=== PATIENT | male | born 1970 | race Caucasian/White ===

== ENCOUNTER 2025-06-13 14:06 | Emergency (ER) | payer BC ==
[~2025-06-13] VITALS: Ht 175.3 cm; Wt 82.5 kg
[2025-06-13 14:28] VITALS: BP 134/74; PULSE 81; RESP 18; TEMP 97.9; O2SAT 99
--- NOTE | 2025-06-13 15:17 | Physician Documentation ---
History of Present Illness ~ Chief Complaint: Finger pain Stated Complaint: FINGER PAIN Time Seen by MD: 15:10 Primary Medical Doctor: none HPI 54-year-old male presents to the ED with a complaint of a dislocated left 5th finger. He provided an photo of the x-ray of his finger that he received from his doctor today. States that it happened while sparring with some 25-year-old man doing martial arts. Finger now appears displaced Tetanus within 5 years: No Medication Reconciliation Allergies: Coded Allergies: Penicillins (Verified Allergy, Severe, RASH, 06/13/25) Uncoded Allergies: ZPAK (Allergy, Severe, HIVES, 06/13/25) Review of Systems All Other Systems at this time: Reviewed and Negative ROS As stated above in the HPI, otherwise all systems are reviewed and negative. Physical Exam Vital Signs: Temperature: 97.9, Source: Oral, Heart Rate: 81, Respiratory Rate: 18, BP: 134/74, Pulse Oximetry: 99, Weight: 82.500 Oxygen Flow Rate: 0 Physical Exam General: Alert, no apparent distress. Extremities: Normal range of motion, no deformity. notable deformity in left 5th metacarpal Neurologic: Oriented x4. Psychiatric: Normal mood and affect. Skin: Normal color, warm and dry. No edema, no ecchymosis. Procedures Ultrasound Procedure Note Denied manual traction to the affected finger and was able to realign bones without difficulty. Reported improved symptoms denies any numbness or tingling Progress Results/Orders Results/Orders Vital Signs 06/13/25 06/13/25 14:28 15:19 Temp 97.9 Pulse 81 Resp 18 B/P (MAP) 134/74 Pulse Ox 99 O2 Flow Rate 0 Medical Decision Making Additional information obtaine: old records Findings Successfully reduce the patient's dislocation without difficulty. Patient left before I could obtain a follow up x-ray. However visually he had full function of his finger and reported improved symptoms General Diff Dx:Considerations: Unlikely: Abrasion, Contusion, Fracture, Hematoma, Laceration, Malunion, Neurovascular injury, Open fracture, Sprain, Ulcer, Other Shoulder Diff Dx:Consideration: Unlikely: AC separation, Adhesive capsulitis, Arthritis, Bicipital tendonitis, Calcific tendonitis, Cervical disc disease, Contusion, Dislocation, Fracture-humerus, Fracture-scapula, Fracture-clavicle, GB disease, Hematoma, Impingement syndrome, Myocardial infarction, Neurovascular injury, Open fracture-humerus, Open fracture-scapula, Open fracture-clavicle, Rotator cuff injury, SC dislocatoin, Sprain, Subacromial bursitis, Other Elbow Diff Dx:Considerations: Unlikely: Abrasion, Arthritis, Contustion, DJD, Fracture-humerus, Fracture-radial head, Fracture-radius, Fracture-ulna, Gout, Hematoma, Laceration, Neurovascular injury, Olecranon bursitis, Open fracture, Osteomyelitis, Radial head subluxation, Rheumatoid arthritis, Septic, Sprain, Ulcer, Other Wrist Diff Dx:Considerations: Unlikely: Abrasion, Arthritis, DJD, Gout, Rheumatoid, Septic, Carpal tunnel snydrome, Contusion, Dislocation, Fracture- carpal, Fracture-radius, Fracture-ulna, Ganglion, Laceration, Neurovascular injury, Open fracture, Strain, Other Hand Diff Dx:Considerations: Unlikely: Abrasion, Arthritis, Contusion, DJD, Felon, Fracture-carpal, Fracture-metacarpal, Fracture-phalynx, Fracture-radius, Fracture-ulna, Gout, Hematoma, Herpetic cinthia, Laceration, Neurovascular injury, Open fracture, Paronychia, Rheumatoid arthritis, Septic, Sprain, Subungual hematoma, Tenosynovitis, Volar plate injury, Cellulitis, Malunion, Other Finger Diff Dx:Considerations: Include: Abrasion, Cellulitis, Contusion, Dislocation, Fracture, Hematoma, Laceration, Neurovascular injury, Open fracture, Subungual hematoma, Other Departure Disposition: 01 HOME / SELF CARE / HOMELESS Impression: Primary Impression: Dislocation, finger closed Condition: Improved Referrals: NO PRIMARY CARE PROVIDER (PCP) Signature Scribe Signature: l Attestation: Scribed for Imani Brian Electro Mechanical Technician by Imani Luo NP . 06/13/25 17:45 IMANI BRIAN NP Jun 13, 2025 15:17
== END 2025-06-13 15:20 | disposition home or self-care (01) ==
LOC: ER 14:08
DX: S63.257A Unspecified dislocation of left little finger, initial encounter (principal); Z88.0 Allergy status to penicillin; X58.XXXA Exposure to other specified factors, initial encounter; Y93.89 Activity, other specified; Y92.89 Other specified places as the place of occurrence of the external cause; Y99.8 Other external cause status
CPT/HCPCS: 26770; 99284